=== PATIENT | female | born 1955 | race Asian ===

== ENCOUNTER 2016-12-14 06:36 | Emergency (ER) | payer OTHER ==
[~2016-12-14] VITALS: Ht 152.4 cm; Wt 48.5 kg
[~2016-12-14 06:36] MED LIST: NKM
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
[2016-12-14] MEDS ORDERED: Acetaminophen 500mg (ES) tab PO ONE (06:45)
[2016-12-14 06:54] VITALS: BP 185/92
[2016-12-14] MEDS ORDERED: TdaP Vaccine 0.5ml Syr IM ONE (07:00)
[2016-12-14] MEDS ORDERED: Bacitracin Oint UD TOPIC ONE (07:00)
[2016-12-14 08:10] VITALS: BP 180/98
[2016-12-14] MEDS ORDERED: TRAMADOL HCL50 MG ORAL (08:40)
[2016-12-14] MEDS ORDERED: IBUPROFEN600 MG ORAL (08:40)
[2016-12-14 09:15] VITALS: BP 161/80
[2016-12-14 09:32] VITALS: BP 161/80
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
== END 2016-12-14 09:33 | disposition home or self-care (01) ==
LOC: EDBD 06:36 → EMR 07:00
DX: S00.03XA Contusion of scalp, initial encounter (principal); S30.810A Abrasion of lower back and pelvis, initial encounter; S79.911A Unspecified injury of right hip, initial encounter; Y04.2XXA Assault by strike against or bumped into by another person, initial encounter; Y92.89 Other specified places as the place of occurrence of the external cause; Z23 Encounter for immunization
CPT/HCPCS: 70450; 72125; 72170; 90471; 90715; 99284